=== PATIENT | female | born 1995 | race Asian ===

== ENCOUNTER 2018-11-09 06:38 | Emergency (ER) | payer MEDICAID ==
[~2018-11-09] VITALS: Ht 157.5 cm; Wt 56.4 kg
[2018-11-09 06:43] VITALS: BP 128/93
[2018-11-09] MEDS ORDERED: triamcinolone acetonide 40mg/ml inj IM ONE (07:05)
== END 2018-11-09 07:50 | disposition home or self-care (01) ==
LOC: ER 06:39
DX: L23.7 Allergic contact dermatitis due to plants, except food (principal); F17.200 Nicotine dependence, unspecified, uncomplicated
CPT/HCPCS: 96372; 99283; J3301